=== PATIENT | male | born 1965 | race Caucasian/White ===

== ENCOUNTER 2019-12-21 06:44 | Day surgery (SDC) | payer BC, OTHER ==
[~2019-12-21] VITALS: Ht 177.8 cm; Wt 73.9 kg
[~2019-12-21 06:44] MED LIST: AIMO70IN SC; ALLO10TA PO; ATOR1TAB21 PO; CIPR-249 PO; FLOM0.4C39 PO; MAXA10TA14 PO; NS 1,000 ML IV ONE; POTA10808 PO
[2019-12-21] MEDS ORDERED: LIDOCAINE 2% INJ 100 MG/5 ML SDV (FOR ANES.) As Ordered ONE (07:20)
[2019-12-21] MEDS ORDERED: propofoL 200 MG/20 ML VIAL As Ordered ONE (07:20)
--- NOTE | 2019-12-21 07:56 | ROOR ---
Patient Name: Bernard Cho Procedure Date: 12/21/2019 7:33 AM Date of : 1965 Age: 54 Room: [facility] Gender: Male Note Status: Finalized Procedure: Colonoscopy to 10 cms + Biopsies Indications: High risk colon cancer surveillance: Ulcerative colitis Providers: Jhonny Kaplan MD Referring MD: Aly Desai MD Requesting Provider: Medicines: Monitored Anesthesia Care Complications: No immediate complications. Procedure: Pre-Anesthesia Assessment: - The heart rate, respiratory rate, oxygen saturations, blood pressure, adequacy of pulmonary ventilation, and response to care were monitored throughout the procedure. The Colonoscope was introduced through the anus and advanced to the sigmoid colon to examine an anastomosis. This was the intended extent. The colonoscopy was performed without difficulty. The patient tolerated the procedure well. The quality of the bowel preparation was good. Findings: The perianal and digital rectal examinations were normal. A localized area of mildly erythematous mucosa was found in the rectum. A few diffuse non-bleeding aphthae were found in the rectum. This was biopsied with a cold forceps for histology. The exam was otherwise without abnormality. Impression: - Erythematous mucosa in the rectum. - Aphtha in the rectum. Biopsied. - The examination was otherwise normal. - The examination was otherwise normal. Recommendation: - Patient has a contact number available for emergencies. The signs and symptoms of potential delayed complications were discussed with the patient. Return to normal activities tomorrow. Written discharge instructions were provided to the patient. - Discharge patient to home. - Continue present medications. - Await pathology results. - Telephone GI clinic for pathology results in 1 week. - Repeat colonoscopy date to be determined after pending pathology results are reviewed for surveillance. - Return to referring physician. - The findings and recommendations were discussed with the patient's family. Jhonny Kaplan MD Jhonny Kaplan MD 12/21/2019 7:55:56 AM Electronically signed by Jhonny Kaplan MD Number of Addenda: 0 Note Initiated On: 12/21/2019 7:33 AM Estimated Blood Loss: Estimated blood loss: none.
[2019-12-21 08:24] VITALS: BP 121/75
== END 2019-12-21 08:24 | disposition home or self-care (01) ==
LOC: M OPP 06:44
PROVIDERS: ATTEND Internal Medicine Gastroenterology
DX: K51.90 Ulcerative colitis, unspecified, without complications (principal); K62.89 Other specified diseases of anus and rectum; I25.10 Atherosclerotic heart disease of native coronary artery without angina pectoris; I71.4 Abdominal aortic aneurysm, without rupture; E78.5 Hyperlipidemia, unspecified; M10.9 Gout, unspecified; G43.909 Migraine, unspecified, not intractable, without status migrainosus; J45.909 Unspecified asthma, uncomplicated; Z79.899 Other long term (current) drug therapy

== ENCOUNTER 2023-11-04 06:53 | Day surgery (SDC) | payer BC, OTHER ==
[~2023-11-04] VITALS: Ht 175.3 cm; Wt 72.6 kg
[~2023-11-04 06:53] MED LIST changes: +ALLO300T2 PO; +ATOG60TA PO; +FERR325T3 PO; +FINA5TAB2 PO; -MAXA10TA14 PO; +RIZA10TA64 PO; +XALA0.007
[2023-11-04] MEDS ORDERED: propofoL 200 MG/20 ML VIAL As Ordered ONE (07:34)
[2023-11-04 07:46] VITALS: TEMP 97.1
[2023-11-04 07:57] VITALS: BP 133/73; O2SAT 98
== END 2023-11-04 08:06 | disposition home or self-care (01) ==
LOC: M OPP 06:53
PROVIDERS: ATTEND Internal Medicine Gastroenterology
DX: K51.20 Ulcerative (chronic) proctitis without complications (principal); K62.89 Other specified diseases of anus and rectum; K91.850 Pouchitis; Z79.02 Long term (current) use of antithrombotics/antiplatelets; Z79.1 Long term (current) use of non-steroidal anti-inflammatories (NSAID); Z79.899 Other long term (current) drug therapy